=== PATIENT | female | born 1970 | race Caucasian/White ===

== ENCOUNTER 2017-03-03 09:04 | Day surgery (SDC) | payer BC ==
[~2017-03-03 09:04] MED LIST: Lactated Ringers 1,000 ML IV SCH; Lidocaine 1% with EPINEPHrine 1:100,000 20 ML MDV ONE; Lidocaine 2% 5 ML SDV ONE; Midazolam 1 MG/ML 2 ML SDV ONE; Propofol 200 MG/20 ML SDV ONE; fentaNYL 100 MCG/2 ML SDV ONE
--- NOTE | 2017-03-03 09:34 | PCM.PREANE ---
Preanesthetic Assessment - Anesthesia/Transfusion/Family Hx Anesthesia History: Prior Anesthesia Without Reaction Family History of Anesthesia Reaction: No Transfusion History: No Prior Transfusion(s) Intubation History: Unknown - Review of Systems General: No Symptoms Pulmonary: No Symptoms Cardiovascular: No Symptoms Gastrointestinal: No Symptoms Neurological: No Symptoms Other: Reports: None - Physical Assessment Height: 1.65 m Weight: 59.874 kg ASA Class: 1 Mental Status: Alert & Oriented x3 Airway Class: Mallampati = 1 Dentition: Reports: Normal Dentition Thyro-Mental Finger Breadths: 3 Mouth Opening Finger Breadths: 3 ROM/Head Extension: Full Lungs: Clear to Auscultation, Normal Respiratory Effort Cardiovascular: Regular Rate, Regular Rhythm - Allergies Allergies/Adverse Reactions: Allergies Allergy/AdvReac Type Severity Reaction Status Date / Time No Known Allergies Allergy Verified 02/25/17 10:04 - Blood Blood Available: No - Anesthesia Plan Pre-Op Medication Ordered: None - Acknowledgements Anesthesia Type Planned: MAC Pt an Appropriate Candidate for the Planned Anesthesia: Yes Alternatives and Risks of Anesthesia Discussed w Pt/Guardian: Yes Pt/Guardian Understands and Agrees with Anesthesia Plan: Yes PreAnesthesia Questionnaire HEENT History: Reports: Other (See Below) Other HEENT History: wears glasses [employer] History: Reports: Other OB/BYN History: hx post bleed but was not given any blood products Dermatologic History: Reports: Other (See Below) (h/o rosacea) - Past Surgical History Head Surgeries/Procedures: Reports: None HEENT Surgical History: Reports: Naso-Sinus Surgery - SUBSTANCE USE Smoking Status *Q: Never Smoker Recreational Drug Use History: No - HOME MEDS Home Medications: Home Meds Ethinyl Estradiol/Drospirenone [Drospirenone-Ee 3-0.02 mg Tab] 1 tab PO ASDIRECTED 02/25/17 [History] - CURRENT (IN HOUSE) MEDS Current Meds: Current Medications Lactated Ringer's (Ringers, Lactated) 1,000 mls @ 100 mls/hr IV ASDIRECTED SOBEIDA Discontinued Medications Fentanyl (Sublimaze) Confirm Administered Dose 100 mcg .ROUTE .STK-MED ONE Stop: 03/03/17 07:51 Lidocaine (Xylocaine-Mpf 2%) Confirm Administered Dose 5 ml .ROUTE .STK-MED ONE Stop: 03/03/17 07:51 Lidocaine/Epinephrine (Xylocaine 1% With Epinephrine 1:100,000) Confirm Administered Dose 20 ml .ROUTE .STK-MED ONE Stop: 03/03/17 07:23 Lidocaine/Epinephrine (Xylocaine 1% With Epinephrine 1:100,000) Confirm Administered Dose 20 ml .ROUTE .STK-MED ONE Stop: 03/03/17 08:01 Midazolam HCl (Versed 1 Mg/Ml) Confirm Administered Dose 2 mg .ROUTE .STK-MED ONE Stop: 03/03/17 07:51 Propofol (Diprivan 20 Ml) Confirm Administered Dose 400 mg .ROUTE .STK-MED ONE Stop: 03/03/17 07:51
[2017-03-03] MEDS ORDERED: Ondansetron 4 MG/2 ML SDV ONE (10:25)
[2017-03-03 14:36] VITALS: BP 116/60
--- NOTE | 2017-03-04 00:20 | OR ---
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 POSTOPERATIVE DIAGNOSIS: Cervical intraepithelial neoplasia II ( CIN2) . PROCEDURE: Loop electrode excision procedure. ANESTHESIA: MAC with cervical block. FLUIDS: 600 crystalloid. ESTIMATED BLOOD LOSS: 5 mL. FINDINGS: Upon colposcopic examination, the entire transformation zone was visualized. There was mild acetowhite epithelium at 12 o'clock position. COMPLICATIONS: None. DISPOSITION: Stable to recovery. BRIEF HISTORY: The patient was referred from an outside provider as a result of ASCUS HPV positive. The patient then subsequently had colposcopy done with acetowhite noted at 12 and 9 position. Biopsy came out as ISAIAH II for 12 o'clock position. ECC was negative .The patient was the offered a LEEP as both a curative and diagnostic procedure.We discussed the risk/benefits and alternatives. Risk of LEEP includes bleeding, infection, and risk of recurrence, risk of cervical incompetence. Alternative is observation which is not preferred. ,or other ablative procedures . she opted for LEEP. The patient understands this procedure and is willing to proceed. DESCRIPTION OF PROCEDURE: The patient was taken to operating room in stable condition on the adequate IV sedation, the patient was placed in dorsal lithotomy position. A plastic speculum was placed into the vagina. The cervix was cleaned with dilute acetic acid and inspected with colposcope. Acetowhite epithelium was noted at 12 o'clock position then 5 mL of epinephrine with 1% lidocaine was injected at 12 o'clock position, 3 o'clock position, 9 o'clock position, and 6 o'clock position. A 20- mm loop was passed across the cervix to get the specimen, and the specimen was tacked at 12 o'clock position. Endocervical hat was also obtained with a smaller loop. Sharp curettage of the endocervix was then performed then the tissue was also collected with Cytobrush. The base of the LEEP site was then cauterized with ball electrode, and the edges were also cauterized with ball electrode. Base was found to be hemostatic then Monsel solution was then applied on the base of the electrode. Finally, the cervix was found to be hemostatic. Final sponge, needle, and instrument counts were reported as correct. All instruments was removed from the vagina, and the patient was taken to the operating room in stable condition. She will be returning to see Dr. Dunn in 4 weeks. The patient tolerated the procedure. JANIS MATA /[id number] MTDD
== END 2017-03-03 11:35 | disposition home or self-care (01) ==
LOC: MW.SDS 09:04
PROVIDERS: ATTEND Obstetrics & Gynecology
DX: N87.1 Moderate cervical dysplasia (principal); Z98.890 Other specified postprocedural states
CPT/HCPCS: 36415; 57460; 84703; 85025; J2250; J2405; J3010; J7120; 00940; 88305; 88307; J2704